=== PATIENT | female | born 1975 | race Caucasian/White ===

== ENCOUNTER → 2022-08-19 14:37 | Outpatient (CLI) | payer BC, SELFPAY ==
--- NOTE | ~2022-08-19 | CT_ITS ---
EXAMINATION: CT chest high resolution wo az DATE: 08/19/2022 15:19 INDICATION: Solitary pulmonary nodule TECHNIQUE: Computed tomography (CT) of the chest was performed without intravenous contrast. The dose -length product (DLP) was 239.49 mGy-cm. Automated exposure control and iterative reconstruction tech nique were employed. COMPARISON: None FINDINGS: There is 1.6 x 1.1 cm nodule of the right lower lobe on image 48. There is mild dependent a telectasis. No pleural effusion or pneumothorax. No pathologically enlarged thoracic lymph nodes are identified. The heart size is normal. There is a small sliding hiatal hernia. There is mild thoracic spondylosis. IMPRESSION: 1. Indeterminate nodule of the right lower lobe. CT-guided biopsy is recommended. Reviewed, dictated and finalized at location L. MATIC TESTER MECHANIC IMPRESSION: 1. Indeterminate nodule of the right lower lobe. CT-guided biopsy is recommende dFranklyn
--- NOTE | ~2022-08-19 | MM_ITS ---
EXAMINATION: MM screening niki BI w florin HISTORY: Screening TECHNIQUE: Craniocaudal and mediolateral oblique 3-D tomosynthesis images were obtained and synthetic 2-D images were generated. CAD analysis was submitted and interpreted. COMPARISON: No prior mammogram is available for comparison at this institution. BREAST PARENCHYMAL COMPOSITION: There are scattered areas of fibroglandular density. FINDINGS: There is no evidence of suspicious mass, calcification, or architectural distortion to sugg est malignancy in either breast. There has been no suspicious interval change. IMPRESSION: 1. No mammographic evidence of malignancy. 2. Recommend routine screening mammography in one year. BI-RADS Category 1: Negative Reviewed, dictated and finalized at location A. AULIC MECHANIC
== END ==
PROVIDERS: PCP Family Medicine; Visit Provider Family Medicine
DX: Z12.31 Encounter for screening mammogram for malignant neoplasm of breast (principal); R91.1 Solitary pulmonary nodule
CPT/HCPCS: 71250; 77063; 77067

== ENCOUNTER 2022-09-01 03:33 | Outpatient (CLI) | payer BC, SELFPAY ==
[2022-08-24 11:56] VITALS: BMI 29.8
--- NOTE | 2022-08-24 11:56 | PC.NURSE ---
Pre Radiology instructions Report to the outpatient [facility] AT 0900 on date 09/01/22. Procedure Time: 1100. YOU MAY BE MONITORED AT HOSPITAL FOR UP TO 4 HOURS AFTER YOUR PROCEDURE. 1-2 visitors will be allowed to accompany the patient into the hospital. ?The visitor will be instructed to remain with patient at all times or MAY BE ASKED TO leave the building due to restrictions.? We will allow the visitor to come back to the postoperative area when patient is ready.? NO children visitors allowed at this time. You and your visitor will be asked to self-screen and do not enter if you have any COVID symptoms. A mask is OPTIONAL within the hospital. Patients are to have no food or drink 6 hours prior to procedure time Driving will be restricted after the procedure, you must have a person to drive you home. Labs will be drawn in preop area and once reviewed, you will be taken to radiology area for procedure. When the procedure is completed, you will be taken to outpatient where you will be monitored for several hours. You may have one visitor in this area. Other than holding anti-coagulants, patient may take other medication(s) as scheduled. Prior to your appointment date patients are instructed to hold anti-coagulants after discussing with ordering provider to stop. If unable to discontinue anti-coagulants please notify radiologist. ? No aspirin or warfarin (Coumadin) for 7 days prior to the procedure. ? No clopidogrel (Plavix), ticagrelor (Brilinta), prasugrel (Effient) or dabigatran (Pradaxa) for 5 days prior to the procedure. ? No rivaroxaban (Xarelto), apixaban (Eliquis), dipyridamole (Aggrenox or Persantine) or cilostazol (Pletal) for 2 days prior to the procedure. Medications to discontinue per physician: N/A Date to take last dose: N/A Please leave all valuables, including medications, at home the day of procedure. The hospital will not accept responsibility for valuables. Wear comfortable, loose fitting clothing.? Follow any additional instructions given to you from ordering provider. Telephone instructions given to GARETT OLMSTEADON and asked if any additional questions and then verbalized understanding. Patient advised to call scheduling provider office or registration scheduling [phone] if any additional questions.
[2022-09-01] VITALS (11 sets, daily range): BP systolic 101–137; BP diastolic 58–83; PULSE 69–91; RESP 16–18; TEMP 36.7; O2SAT 96–100
--- NOTE | ~2022-09-01 | XR_ITS ---
EXAMINATION: XR chest 1V DATE: 09/01/2022 11:13 INDICATION: Right lung nodule status post percutaneous biopsy. TECHNIQUE: A single frontal view of the chest was obtained. COMPARISON: Chest CT 08/19/2022 FINDINGS: There are airspace opacities in superior segment right lower lobe. No pleural effusion or p neumothorax. The heart size is normal. IMPRESSION: 1. Airspace opacities in superior segment right lower lobe, consistent post biopsy hemorrhage. Reviewed, dictated and finalized at location A. IMINARY SCHOOL PSYCHOLOGIST IMPRESSION: 1. Airspace opacities in superior segment right lower lobe, consistent post bio psy hemorrhage.
--- NOTE | ~2022-09-01 | XR_ITS ---
EXAMINATION: XR chest 1V portable DATE: 09/01/2022 14:26 INDICATION: Right lung nodule status post percutaneous biopsy. TECHNIQUE: A single frontal view of the chest was obtained. COMPARISON: Chest single view at 12:23 PM. FINDINGS: There are mild airspace opacities in right mid and lower lung zones. No pleural effusion or pneumothorax. The heart size is normal. IMPRESSION: 1. Mild airspace opacities in right mid and lower lung zones, likely a combination of postbiopsy hemo rrhage and basilar atelectasis. Reviewed, dictated and finalized at location A. ERTY INSURANCE INSPECTOR IMPRESSION: 1. Mild airspace opacities in right mid and lower lung zones, likely a combinat ion of postbiopsy hemorrhage and basilar atelectasis.
--- NOTE | ~2022-09-01 | XR_ITS ---
EXAMINATION: XR chest 1V portable DATE: 09/01/2022 12:28 INDICATION: Right lung nodule status post percutaneous biopsy. TECHNIQUE: A single frontal view of the chest was obtained. COMPARISON: Chest single view at 11:26 AM FINDINGS: There are mild airspace opacities in right mid and lower lung zones. No pleural effusion or pneumothorax. The heart size is normal. IMPRESSION: 1. Mild airspace opacities in right mid and lower lung zones, likely a combination of postbiopsy hemo rrhage and basilar atelectasis. Reviewed, dictated and finalized at location A. AGENT IMPRESSION: 1. Mild airspace opacities in right mid and lower lung zones, likely a combinat ion of postbiopsy hemorrhage and basilar atelectasis.
--- NOTE | ~2022-09-01 | XR_ITS ---
EXAMINATION: XR chest 1V portable DATE: 09/01/2022 11:33 INDICATION: Chest pain after lung biopsy. TECHNIQUE: A single frontal view of the chest was obtained. COMPARISON: Chest single view at 11:11 AM FINDINGS: There are airspace opacities in superior segment right lower lobe. No pleural effusion or p neumothorax. The heart size is normal. IMPRESSION: 1. Stable airspace opacities in superior segment right lower lobe, consistent with postbiopsy hemorrh age. Reviewed, dictated and finalized at location A. PILOT IMPRESSION: 1. Stable airspace opacities in superior segment right lower lobe, consistent w ith postbiopsy hemorrhage.
--- NOTE | ~2022-09-01 | CT_ITS ---
EXAMINATION: CT biopsy lung w/imaging DATE: 09/01/2022 11:09 INDICATION: Right lung nodule. TECHNIQUE: The procedure including the risks, benefits, and alternatives and possibility of chest tub e placement were discussed with the patient. Risks discussed included infection, hemorrhage, approxim ately 1/3 risk of pneumothorax, approximately 1/10 risk of pneumothorax severe enough to warrant ches t tube placement, and rarely . The patient understood the risks and agreed to proceed. The patie nt was placed prone. The skin overlying the right lung was prepped and draped in sterile fashion. A nesthetic was administered with 1% lidocaine subcutaneously. A 19 gauge outer needle was advanced un tal CT guidance to the lesion of interest. A 20 gauge core biopsy needle was then used to obtain 3 co re biopsy specimens. The needle was removed and the entry site was cleaned and dressed. The mA was ad justed according to patient size. Iterative reconstruction technique was employed. The dose-length pr oduct was 164.17 mGy-cm. There were no immediate complications. FINDINGS: CT images demonstrate the outer needle tip adjacent to a 15 mm nodule in right lung lower l obe. Postbiopsy images demonstrate hemorrhage around the nodule. The patient was placed in the right lateral decubitus position after the biopsy. IMPRESSION: 1. CT-guided core needle biopsy of a 15 mm nodule in right lung lower lobe. Reviewed, dictated and finalized at location A. RANCE INSTRUCTOR
[2022-09-01 09:36] LABS: Basophils Percent Auto 0.4 % (0.2-1.2); Eosinophils Absolute Auto 0.2 K/mm3 (0-0.3); Eosinophils Percent Auto 2.8 % (0-4.4); Hematocrit 41.6 % (37.0-47.0); Hemoglobin 13.9 g/dL (12.0-15.0); Immature Granulocyte Absolute 0.01 K/mm3 (0.00-0.031); Immature Granulocyte Percent A 0.1 % (0-0.5); Lymphocytes Absolute Auto 1.57 K/mm3 (0.9-3.2); Mean Corpuscular HGB Conc 33.4 g/dl (32-36); Mean Corpuscular Volume 89.7 fl (80-100); Mean Platelet Volume 8.4 fl (7.4-10.4); Monocytes Absolute Auto 0.3 K/mm3 (0.1-0.6); Monocytes Percent Auto 4.8 % (2.6-8.5); Neutrophils Absolute Auto 4.7 K/mm3 (1.3-6.7); Neutrophils Percent Auto 68.9 % (45.5-73.1); Platelet Count Result 350 k/mm3 (150-375); Red Blood Count 4.64 M/mm3 (4.2-5.4); Red Cell Distribution Width 13.2 % (11.5-14.5); White Blood Count 6.8 K/mm3 (4.5-10.0)
[2022-09-01 09:51] LABS: Prothrombin Time 12.7 Seconds (11.1-14.7)
--- NOTE | 2022-09-01 11:25 | SUR.PHASEII ---
This nurse retrieved this pt and c/o increase pain and coughing up blood (the tech and dr renteria were aware of). This nurse was going to call dr renteria but then he came to pt room to see pt. Dr renteria ordered a portable CXR and tylenol for pain.
[2022-09-01] MEDS: ACETAMINOPHEN 500 MG TABLET 1000 MG PO (11:39)
--- NOTE | 2022-09-01 14:22 | SUR.PHASEII ---
after that initial CXR in op dr renteria said the CXR was unchanged. pt now says her pain has improved and pt is resting comfortably. radiology is now at bedside getting the 3 hr CXR. pt is resting with her eyes closed now.
--- NOTE | 2022-09-01 14:41 | SUR.PHASEII ---
dr renteria called this nurse and said pt CXR was good and that she could go home.
== END 2022-09-01 14:46 | disposition home or self-care (01) ==
PROVIDERS: PCP Family Medicine; Referring Provider Nurse Practitioner; Visit Provider Radiology Diagnostic Radiology
PROC: BB24ZZZ Computerized Tomography (CT Scan) of Bilateral Lungs (ICD-10-PCS; CPT 32408; principal; 2022-09-01 11:00)
DX: R91.1 Solitary pulmonary nodule (principal)
CPT/HCPCS: 32408; 36415; 71045; 85025; 85610; 88305; A9270

== ENCOUNTER 2023-05-12 00:53 | Day surgery (SDC) | payer BC, SELFPAY ==
[2023-04-29 12:42] VITALS: BMI 29.9
[2023-05-12 08:21] VITALS: BP 131/88; PULSE 71; RESP 18; TEMP 36.4; O2SAT 100
[2023-05-12] MEDS: LACTATED RINGERS 1,000 ML 150 ML IV CONT (08:35)
--- NOTE | 2023-05-12 09:38 | PM.HPGS ---
History of Present Illness History of Present Illness Consent: Risks, benefits, and alternatives have been discussed and questions answered. Patient agrees to proceed with procedure. Chief complaint: GERD without esophagitis Narrative: Vy Barreto is a 47 year old female with gerd on ppi daily, last EGD about 6 years ago, at some point her former GI doctor was doing EGD every 2 years Review of Systems Constitutional: Constitutional: Denies headache(s) and Denies weakness Eyes: Eyes: Denies blurry vision ENT: Reports Normal hearing present, Denies headache(s) and Denies neck pain Cardiovascular: Cardiovascular: Denies chest pain and Denies dyspnea Respiratory: Respiratory: Denies dyspnea Gastrointestinal: Gastrointestinal: Reports no additional gastrointestinal complaints Genitourinary: Genitourinary: Denies dysuria Musculoskeletal: Musculoskeletal: Denies neck pain Integumentary/Breasts: Skin/Breast: Denies dry skin Neurologic: Reports Normal hearing present, Denies headache(s) and Denies weakness Psychiatric: Psychiatric: Denies anxiety Endocrine: Endocrine: Denies change in body appearance Hematologic/Lymphatic: Hematologic/Lymphatic: Denies easy bleeding Allergic/Immunologic: Allergic/Immunologic: Denies urticaria PMFSH Family History Family History Mother Age related osteoporosis Hodgkin lymphoma History of prediabetes Depression Father Depression Grandparent COPD (chronic obstructive pulmonary disease) Age related osteoporosis Dementia Diabetes mellitus Heart disease Social History Social History (Updated 04/02/23 @ 09:45 by Niya Berman MA) Smoking packs per day: 1 Smoking cigarettes per day: 20.0 Years smoked: 20 Smoking pack-years: 20.00 Smoking status: Former smoker Tobacco type: cigarettes and e-cigarettes/vaping Additional smoking assessment comments: CURRENTLY VAPES Alcohol intake: current Alcohol use details: maybe twice a month Substance use: never Substance use type: does not use Lack of Transportation: No Lack of Food: Never True Current Housing: I Have Housing Concerned About Future Housing: No Difficulty Paying Gas/Electric Bills: No Difficulty Paying for Meds: No Currently Unemployed: No Education: Trade/Vocational Certificate Difficulty w/ Childcare or Family Care: No Living arrangements: with family Spiritual care concerns: No Meds Home Medications and Allergies Home Medications Medication Instructions Recorded Confirmed Type lansoprazole 30 mg capsule,delayed 30 mg PO DAILY #90 caps 04/01/23 04/29/23 Rx release alprazolam 0.25 mg tablet 0.25 mg PO BID PRN anxiety #30 tabs 04/02/23 04/29/23 Rx venlafaxine 75 mg capsule,extended 75 mg PO DAILY #90 caps 04/02/23 04/29/23 Rx release 24 hr Allergies Allergy/AdvReac Type Severity Reaction Status Date / Time bupropion [From Wellbutrin] Allergy Severe Swelling Verified 05/12/23 08:20 of Lip/Tongue/Throat Vital Signs Vital Signs - 24 hr 05/12/23 08:21 Temperature 97.5 F L Pulse Rate 71 Respiratory Rate 18 Blood Pressure 131/88 Pulse Oximetry 100 Oxygen Delivery Room Air Exam Const: General: comfortable and no acute distress HENMT: Face/Nose/Sinus: Normal nares present Eyes: General: appearance normal, both eyes and all related structures Neck: Neck: no JVD Resp: Auscultation: clear to auscultation bilaterally Cardio: Rate: regular rate Rhythm: regular rhythm GI: Inspection: non-distended GI Palp: Yes Soft to palpation Skin: General skin exam: normal color Neuro: General: gait normal Speech: normal speech Extrem: General: normal to inspection Psych: Mental Status: mental status grossly normal Assessment and Plan Assessment and plan (1) GERD (gastroesophageal reflux disease): Code(s): K21.9 - Gastro-esophageal reflux d
--- NOTE | 2023-05-12 09:45 | P.PNAN_ITS ---
Anes - Initial Pre Proc Eval Procedure: Operation Date: 05/12/23 10:00 Proposed Procedures p Esophagogastroduodenoscopy - Marco Mendiola MD Date/Time: 05/12/23 09:45 Surgeon: Marco Mendiola MD Pre Op Diagnosis: GERD without esophagitis Patient Data Age: 47 Gender: F Height: 1.63 m Weight: 80 kg Last Vital Signs Temp 97.5 F L 05/12/23 08:21 Pulse 71 05/12/23 08:21 Resp 18 05/12/23 08:21 BP 131/88 05/12/23 08:21 Pulse Ox 100 05/12/23 08:21 O2 Del Method Room Air 05/12/23 08:21 Allergies Allergy/AdvReac Type Severity Reaction Status Date / Time bupropion [From Wellbutrin] Allergy Severe Swelling Verified 05/12/23 08:20 of Lip/Tongue/Throat Home Medications Medication Instructions Recorded Confirmed Type lansoprazole 30 mg capsule,delayed 30 mg PO DAILY #90 caps 04/01/23 04/29/23 Rx release alprazolam 0.25 mg tablet 0.25 mg PO BID PRN anxiety #30 tabs 04/02/23 04/29/23 Rx venlafaxine 75 mg capsule,extended 75 mg PO DAILY #90 caps 04/02/23 04/29/23 Rx release 24 hr Patient hx anesthesia problems: none Family hx anesthesia problems: none Results Review: All pre-operative results and documents have been reviewed as part of the pre- operative evaluation. [facility] Family History Family History Mother Age related osteoporosis Hodgkin lymphoma History of prediabetes Depression Father Depression Grandparent COPD (chronic obstructive pulmonary disease) Age related osteoporosis Dementia Diabetes mellitus Heart disease Social History Social History (Updated 04/02/23 @ 09:45 by Niya Berman MA) Smoking packs per day: 1 Smoking cigarettes per day: 20.0 Years smoked: 20 Smoking pack-years: 20.00 Smoking status: Former smoker Tobacco type: cigarettes and e-cigarettes/vaping Additional smoking assessment comments: CURRENTLY VAPES Alcohol intake: current Alcohol use details: maybe twice a month Substance use: never Substance use type: does not use Lack of Transportation: No Lack of Food: Never True Current Housing: I Have Housing Concerned About Future Housing: No Difficulty Paying Gas/Electric Bills: No Difficulty Paying for Meds: No Currently Unemployed: No Education: Trade/Vocational Certificate Difficulty w/ Childcare or Family Care: No Living arrangements: with family Spiritual care concerns: No Anes - Eval Final PreProcedure Day of Procedure 05/12/23 09:45 Patient weight: obese Heart: regular rate and rhythm Lungs: clear to auscultation Airway: Mallampati scale class II Neurological: alert and oriented Last oral intake: >/= 8 hours ASA classification: II Emergent: no Anesthetic plan: proceed Anesthesia type and monitoring: general GIVS and standard monitoring Results Review: All pre-operative results and documents have been reviewed as part of the pre- operative evaluation. Informed Consent: The patient's anesthetic plan and its attendant risks and benefits were discussed with the patient/family/POA. Questions were solicited and answers provided to the satisfaction of the patient/family/POA
[2023-05-12 09:52] VITALS: BP 113/81; PULSE 68; RESP 17; O2SAT 94
[2023-05-12 10:02] VITALS: BP 116/71; PULSE 73; RESP 18; O2SAT 100
[2023-05-12 10:12] VITALS: BP 134/85; PULSE 77; RESP 21; O2SAT 99
== END 2023-05-12 10:22 | disposition home or self-care (01) ==
PROVIDERS: PCP Family Medicine; Visit Provider Internal Medicine Gastroenterology
PROC: 0DJ08ZZ Inspection of Upper Intestinal Tract, Via Natural or Artificial Opening Endoscopic (ICD-10-PCS; CPT 43235; principal; 2023-05-12 10:00)
DX: K21.00 Gastro-esophageal reflux disease with esophagitis, without bleeding (principal); K44.9 Diaphragmatic hernia without obstruction or gangrene; K31.7 Polyp of stomach and duodenum; F17.290 Nicotine dependence, other tobacco product, uncomplicated
CPT/HCPCS: 43239; 88305; J2704; J7120